=== PATIENT | female | born 1970 | race Caucasian/White ===

== ENCOUNTER 2019-09-02 10:33 | Outpatient (CLI) | payer OTHER, SELFPAY ==
[2019-09-02 11:35] LABS: Cholesterol 144 mg/dL (0-200); HDL Direct 28 mg/dL; Triglycerides 110 mg/dL (<150)
[2019-09-02 11:46] LABS: LDL Cholesterol Direct 93 mg/dL
== END 2019-09-02 10:34 | disposition home or self-care (01) ==
PROVIDERS: PCP Family Medicine; Visit Provider Nurse Practitioner Family
DX: E78.2 Mixed hyperlipidemia (principal)
CPT/HCPCS: 36415; 80061

== ENCOUNTER 2020-05-08 09:49 | Outpatient (CLI) | payer OTHER, SELFPAY ==
[2020-05-08 10:12] LABS: Basophils Absolute Auto 0.1 K/mm3 (0.0-0.1); Basophils Percent Auto 1.1 % (0.2-1.2); Eosinophils Absolute Auto 0.3 K/mm3 (0-0.3); Hematocrit 40.2 % (37.0-47.0); Hemoglobin 13.4 g/dL (12.0-15.0); Immature Granulocyte Absolute 0.02 K/mm3 (0.00-0.031); Immature Granulocyte Percent A 0.3 % (0-0.5); Lymphocytes Absolute Auto 1.49 K/mm3 (0.9-3.2); Lymphocytes Percent Auto 23.2 % (18.3-44.2); Mean Corpuscular HGB Conc 33.3 g/dl (32-36); Mean Corpuscular Hemoglobin 29.8 pg (26-34); Mean Corpuscular Volume 89.5 fl (80-100); Mean Platelet Volume 9.8 fl (7.4-10.4); Monocytes Absolute Auto 0.6 K/mm3 (0.1-0.6); Monocytes Percent Auto 8.6 % (2.6-8.5); Neutrophils Percent Auto 61.8 % (45.5-73.1); Platelet Count Result 286 k/mm3 (150-375); Red Blood Count 4.49 M/mm3 (4.2-5.4); Red Cell Distribution Width 13.3 % (11.5-14.5); White Blood Count 6.4 K/mm3 (4.5-10.0)
[2020-05-08 10:21] LABS: Alanine Aminotransferase 35 U/L (4-35); Alkaline Phosphatase 59 U/L (38-126); Anion Gap 4 mmol/L (8-16); Aspartate Amino Transferase 35 U/L (14-36); Bilirubin,Total 0.4 mg/dL (0.2-1.3); Blood Urea Nitrogen 11 mg/dL (7-17); Calcium 8.9 mg/dL (8.4-10.2); Carbon Dioxide 30 mmol/L (22-30); Chloride 104 mmol/L (98-107); Cholesterol 192 mg/dL (0-200); Estimated Glomerular Filt Rate > 60; Glucose 105 mg/dL (65-105); HDL Direct 42 mg/dL; Potassium 4.2 mmol/L (3.4-5.0); Sodium 138 mmol/L (137-145); Triglycerides 183 mg/dL (<150)
[2020-05-08 10:32] LABS: LDL Cholesterol Direct 106 mg/dL
[2020-05-08 10:57] LABS: Free T4 Free Thyroxine 0.71 ng/mL (0.78-2.19); Vitamin D 25 Hydroxy 20.5 ng/mL
== END 2020-05-08 09:50 | disposition home or self-care (01) ==
LOC: ANHLAB 09:52
PROVIDERS: PCP Family Medicine; Visit Provider Nurse Practitioner
DX: Z13.0 Encounter for screening for diseases of the blood and blood-forming organs and certain disorders involving the immune mechanism (principal); Z13.6 Encounter for screening for cardiovascular disorders; Z13.220 Encounter for screening for lipoid disorders; Z13.29 Encounter for screening for other suspected endocrine disorder; E55.9 Vitamin D deficiency, unspecified; I10 Essential (primary) hypertension; Z00.00 Encounter for general adult medical examination without abnormal findings
CPT/HCPCS: 36415; 80053; 80061; 82306; 84439; 84443; 84480; 85025

== ENCOUNTER 2020-12-18 09:20 | Outpatient (CLI) | payer OTHER, SELFPAY ==
[2020-12-18 09:56] LABS: Basophils Absolute Auto 0.1 K/mm3 (0.0-0.1); Basophils Percent Auto 0.8 % (0.2-1.2); Eosinophils Absolute Auto 0.3 K/mm3 (0-0.3); Eosinophils Percent Auto 3.8 % (0-4.4); Hematocrit 41.7 % (37.0-47.0); Hemoglobin 13.8 g/dL (12.0-15.0); Immature Granulocyte Absolute 0.02 K/mm3 (0.00-0.031); Immature Granulocyte Percent A 0.3 % (0-0.5); Lymphocytes Absolute Auto 1.37 K/mm3 (0.9-3.2); Lymphocytes Percent Auto 18.7 % (18.3-44.2); Mean Corpuscular HGB Conc 33.1 g/dl (32-36); Mean Corpuscular Hemoglobin 30.2 pg (26-34); Mean Corpuscular Volume 91.2 fl (80-100); Mean Platelet Volume 10.2 fl (7.4-10.4); Monocytes Absolute Auto 0.6 K/mm3 (0.1-0.6); Monocytes Percent Auto 8.5 % (2.6-8.5); Neutrophils Percent Auto 67.9 % (45.5-73.1); Platelet Count Result 298 k/mm3 (150-375); Red Blood Count 4.57 M/mm3 (4.2-5.4); Red Cell Distribution Width 13.5 % (11.5-14.5); White Blood Count 7.3 K/mm3 (4.5-10.0)
[2020-12-18 10:17] LABS: Alanine Aminotransferase 78 U/L (4-35); Albumin Level 4.2 g/dL (3.5-5.1); Alkaline Phosphatase 63 U/L (38-126); Anion Gap 5 mmol/L (8-16); Aspartate Amino Transferase 51 U/L (14-36); Bilirubin,Total 0.5 mg/dL (0.2-1.3); Blood Urea Nitrogen 13 mg/dL (7-17); Calcium 9.2 mg/dL (8.4-10.2); Carbon Dioxide 32 mmol/L (22-30); Chloride 101 mmol/L (98-107); Cholesterol 155 mg/dL (0-200); Estimated Glomerular Filt Rate > 60; Glucose 107 mg/dL (65-110); HDL Direct 32 mg/dL; Potassium 3.6 mmol/L (3.4-5.0); Sodium 138 mmol/L (137-145); Triglycerides 174 mg/dL (<150)
[2020-12-18 10:23] LABS: LDL Cholesterol Direct 84 mg/dL
[2020-12-18 10:33] LABS: MALB Creatinine Ratio 25.3 mg/g (0-30); Microalbumin Urine Random 62.2 mg/L (0-16.7)
[2020-12-18 10:44] LABS: Free T4 Free Thyroxine 0.93 ng/mL (0.78-2.19)
[2020-12-18 11:35] LABS: Total Triiodothyronine (T3) 1.44 NG/ML (0.97-1.69)
== END 2020-12-18 09:21 | disposition home or self-care (01) ==
LOC: ANHLAB 09:23
PROVIDERS: PCP Family Medicine; Visit Provider Nurse Practitioner Family
DX: E78.5 Hyperlipidemia, unspecified (principal); I10 Essential (primary) hypertension
CPT/HCPCS: 36415; 80053; 80061; 82043; 82306; 84439; 84443; 84480; 85025

== ENCOUNTER 2022-10-06 11:06 | Outpatient (CLI) | payer OTHER, SELFPAY ==
[2022-10-06 16:40] LABS: Basophils Absolute Auto 0.1 K/mm3 (0.0-0.1); Basophils Percent Auto 0.7 % (0.2-1.2); Eosinophils Absolute Auto 0.2 K/mm3 (0-0.3); Eosinophils Percent Auto 2.9 % (0-4.4); Hematocrit 40.9 % (37.0-47.0); Immature Granulocyte Absolute 0.05 K/mm3 (0.00-0.031); Immature Granulocyte Percent A 0.6 % (0-0.5); Lymphocytes Percent Auto 14.6 % (18.3-44.2); Mean Corpuscular HGB Conc 31.8 g/dl (32-36); Mean Corpuscular Hemoglobin 29.4 pg (26-34); Mean Corpuscular Volume 92.5 fl (80-100); Mean Platelet Volume 10.8 fl (7.4-10.4); Monocytes Absolute Auto 0.6 K/mm3 (0.1-0.6); Monocytes Percent Auto 7.1 % (2.6-8.5); Neutrophils Absolute Auto 6.1 K/mm3 (1.3-6.7); Neutrophils Percent Auto 74.1 % (45.5-73.1); Platelet Count Result 331 k/mm3 (150-375); Red Blood Count 4.42 M/mm3 (4.2-5.4); Red Cell Distribution Width 13.1 % (11.5-14.5); White Blood Count 8.2 K/mm3 (4.5-10.0)
[2022-10-06 17:01] LABS: Alanine Aminotransferase 21 U/L (6-35); Albumin Level 4.1 g/dL (3.5-5.1); Alkaline Phosphatase 75 U/L (38-126); Anion Gap 9 mmol/L (8-16); Aspartate Amino Transferase 74 U/L (14-36); Bilirubin,Total 0.6 mg/dL (0.2-1.3); Blood Urea Nitrogen 11 mg/dL (7-17); Calcium 8.7 mg/dL (8.4-10.2); Carbon Dioxide 28 mmol/L (22-30); Chloride 101 mmol/L (98-107); Cholesterol 176 mg/dL (0-200); Estimated Glomerular Filt Rate > 60; Glucose 90 mg/dL (65-110); HDL Direct 33 mg/dL; Potassium 3.8 mmol/L (3.4-5.0); Sodium 138 mmol/L (137-145); Triglycerides 217 mg/dL (<150)
[2022-10-06 17:12] LABS: LDL Cholesterol Direct 95 mg/dL
[2022-10-06 17:15] LABS: Free T4 Free Thyroxine 0.96 ng/mL (0.78-2.19)
[2022-10-06 17:28] LABS: Total Triiodothyronine (T3) 1.27 NG/ML (0.97-1.69)
== END 2022-10-06 11:07 | disposition home or self-care (01) ==
LOC: ANHWCLAB 11:12
PROVIDERS: PCP Family Medicine; Visit Provider Nurse Practitioner Adult Health
DX: I10 Essential (primary) hypertension (principal); F41.9 Anxiety disorder, unspecified; E78.5 Hyperlipidemia, unspecified; J44.9 Chronic obstructive pulmonary disease, unspecified; F31.9 Bipolar disorder, unspecified
CPT/HCPCS: 36415; 80053; 80061; 84439; 84443; 84480; 85025

== ENCOUNTER 2023-01-23 09:22 | Outpatient (CLI) | payer OTHER, SELFPAY ==
[2023-01-23 16:35] LABS: Basophils Absolute Auto 0.1 K/mm3 (0.0-0.1); Basophils Percent Auto 1.1 % (0.2-1.2); Eosinophils Absolute Auto 0.3 K/mm3 (0-0.3); Eosinophils Percent Auto 4.2 % (0-4.4); Hemoglobin 12.9 g/dL (12.0-15.0); Immature Granulocyte Absolute 0.02 K/mm3 (0.00-0.031); Immature Granulocyte Percent A 0.3 % (0-0.5); Lymphocytes Absolute Auto 1.25 K/mm3 (0.9-3.2); Lymphocytes Percent Auto 19.6 % (18.3-44.2); Mean Corpuscular HGB Conc 31.5 g/dl (32-36); Mean Corpuscular Volume 92.1 fl (80-100); Monocytes Absolute Auto 0.6 K/mm3 (0.1-0.6); Monocytes Percent Auto 9.7 % (2.6-8.5); Neutrophils Absolute Auto 4.1 K/mm3 (1.3-6.7); Neutrophils Percent Auto 65.1 % (45.5-73.1); Platelet Count Result 331 k/mm3 (150-375); Red Blood Count 4.45 M/mm3 (4.2-5.4); Red Cell Distribution Width 13.7 % (11.5-14.5); White Blood Count 6.4 K/mm3 (4.5-10.0)
[2023-01-23 17:11] LABS: Alanine Aminotransferase 16 U/L (6-35); Albumin Level 4.2 g/dL (3.5-5.1); Alkaline Phosphatase 68 U/L (38-126); Anion Gap 5 mmol/L (8-16); Aspartate Amino Transferase 57 U/L (14-36); Bilirubin,Total 0.8 mg/dL (0.2-1.3); Blood Urea Nitrogen 12 mg/dL (7-17); Calcium 8.9 mg/dL (8.4-10.2); Carbon Dioxide 27 mmol/L (22-30); Chloride 104 mmol/L (98-107); Cholesterol 176 mg/dL (0-200); Estimated Glomerular Filt Rate > 60; Glucose 95 mg/dL (65-110); HDL Direct 34 mg/dL; Potassium 3.6 mmol/L (3.4-5.0); Sodium 136 mmol/L (137-145); Triglycerides 107 mg/dL (<150)
[2023-01-23 17:22] LABS: LDL Cholesterol Direct 98 mg/dL
[2023-01-23 17:28] LABS: Free T4 Free Thyroxine 1.15 ng/mL (0.78-2.19)
[2023-01-23 17:41] LABS: Thyroid Stimulating Hormone 0.398 uIU/mL (0.465-4.680)
== END 2023-01-23 09:23 | disposition home or self-care (01) ==
LOC: ANHWCLAB 09:23
PROVIDERS: PCP Family Medicine; Visit Provider Nurse Practitioner Adult Health
DX: I10 Essential (primary) hypertension (principal); E78.5 Hyperlipidemia, unspecified; J44.9 Chronic obstructive pulmonary disease, unspecified; R60.9 Edema, unspecified; G62.9 Polyneuropathy, unspecified
CPT/HCPCS: 36415; 80053; 80061; 84439; 84443; 85025

== ENCOUNTER 2023-07-31 10:02 | Outpatient (CLI) | payer OTHER, SELFPAY ==
[2023-07-31 10:46] LABS: Alanine Aminotransferase 15 U/L (6-35); Albumin Level 4.1 g/dL (3.5-5.1); Alkaline Phosphatase 58 U/L (38-126); Anion Gap 8 mmol/L (4-12); Aspartate Amino Transferase 23 U/L (14-36); Bilirubin,Total 0.5 mg/dL (0.2-1.3); Blood Urea Nitrogen 12 mg/dL (7-17); Carbon Dioxide 30 mmol/L (22-30); Chloride 101 mmol/L (98-107); Estimated Glomerular Filt Rate > 60; Glucose 139 mg/dL (65-110); Potassium 2.8 mmol/L (3.4-5.0); Sodium 139 mmol/L (137-145)
== END 2023-07-31 10:03 | disposition home or self-care (01) ==
LOC: ANHLAB 10:08
PROVIDERS: PCP Family Medicine; Visit Provider Family Medicine
DX: R60.0 Localized edema (principal); M47.816 Spondylosis without myelopathy or radiculopathy, lumbar region
CPT/HCPCS: 36415; 80053

== ENCOUNTER 2023-08-02 10:49 | Outpatient (CLI) | payer OTHER, SELFPAY ==
[2023-08-02 11:22] LABS: Alanine Aminotransferase 16 U/L (6-35); Alkaline Phosphatase 56 U/L (38-126); Anion Gap 6 mmol/L (4-12); Aspartate Amino Transferase 22 U/L (14-36); Bilirubin,Total 0.4 mg/dL (0.2-1.3); Blood Urea Nitrogen 14 mg/dL (7-17); Calcium 8.9 mg/dL (8.4-10.2); Carbon Dioxide 30 mmol/L (22-30); Chloride 104 mmol/L (98-107); Estimated Glomerular Filt Rate > 60; Glucose 106 mg/dL (65-110); Potassium 3.5 mmol/L (3.4-5.0); Sodium 140 mmol/L (137-145)
== END 2023-08-02 10:50 | disposition home or self-care (01) ==
LOC: ANHLAB 10:52
PROVIDERS: PCP Family Medicine; Visit Provider Registered Nurse
DX: I10 Essential (primary) hypertension (principal); E87.5 Hyperkalemia
CPT/HCPCS: 36415; 80053

== ENCOUNTER 2023-09-18 11:14 | Outpatient (CLI) | payer MEDICAID, SELFPAY ==
[2023-09-18 12:36] LABS: Anion Gap 8 mmol/L (4-12); Blood Urea Nitrogen 12 mg/dL (7-17); Calcium 8.6 mg/dL (8.4-10.2); Carbon Dioxide 28 mmol/L (22-30); Chloride 103 mmol/L (98-107); Estimated Glomerular Filt Rate > 60; Glucose 103 mg/dL (65-110); Potassium 3.2 mmol/L (3.4-5.0); Sodium 139 mmol/L (137-145)
== END 2023-09-18 11:15 | disposition home or self-care (01) ==
PROVIDERS: PCP Family Medicine; Visit Provider Registered Nurse
DX: R60.9 Edema, unspecified (principal); I10 Essential (primary) hypertension
CPT/HCPCS: 36415; 80048

== ENCOUNTER 2023-09-25 13:19 | Outpatient (CLI) | payer MEDICAID, SELFPAY ==
[2023-09-25 13:49] LABS: Anion Gap 8 mmol/L (4-12); Blood Urea Nitrogen 12 mg/dL (7-17); Calcium 8.9 mg/dL (8.4-10.2); Carbon Dioxide 30 mmol/L (22-30); Chloride 101 mmol/L (98-107); Estimated Glomerular Filt Rate > 60; Glucose 105 mg/dL (65-110); Potassium 3.4 mmol/L (3.4-5.0); Sodium 139 mmol/L (137-145)
== END 2023-09-25 13:20 | disposition home or self-care (01) ==
PROVIDERS: PCP Family Medicine; Visit Provider Registered Nurse
DX: I10 Essential (primary) hypertension (principal)
CPT/HCPCS: 36415; 80048

== ENCOUNTER 2023-11-14 13:19 | Emergency (ER) | payer OTHER, SELFPAY ==
[2023-11-14 13:31] VITALS: BP 115/66; PULSE 67; RESP 20; TEMP 36.4; O2SAT 99
--- NOTE | 2023-11-14 14:26 | ED.URI ---
HPI - URI/Sore Throat General Chief Complaint: Upper Respiratory Infection Stated Complaint: sore throat,cough,chest bothersome Time Seen by Provider: 11/14/23 14:26 Source: patient, RN notes reviewed and old records reviewed Mode of arrival: ambulatory Limitations: no limitations History of Present Illness HPI Narrative: Patient present complaining of sore throat and cough that has been present for approximately 3 days. 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 She is concerned today that this might be what is wrong with her. She reports that she has been intermittently taking some Tylenol, minimal relief. She denies any fever, chills, sweats. She reports worse symptom is the sore throat Related Data Home Medications Medication Instructions Recorded Confirmed albuterol sulfate 90 mcg/actuation 1 puff inhalation Q4H PRN SOB 10/10/23 11/14/23 aerosol inhaler amlodipine 10 mg tablet 10 mg PO DAILY 10/10/23 11/14/23 atorvastatin 80 mg tablet 80 mg PO DAILY 10/10/23 11/14/23 cetirizine 10 mg tablet 10 mg PO DAILY 10/10/23 11/14/23 fluoxetine 10 mg capsule 10 mg PO DAILY 10/10/23 11/14/23 fluoxetine 40 mg capsule 40 mg PO DAILY 10/10/23 11/14/23 furosemide 40 mg tablet 40 mg PO QAM 10/10/23 11/14/23 gabapentin 300 mg tablet,extended 300 mg PO QPM 10/10/23 11/14/23 release 24 hr potassium chloride 20 mEq 20 meq PO DAILY 10/10/23 11/14/23 tablet,extended release quetiapine 50 mg tablet 50 mg PO BID 10/10/23 11/14/23 umeclidinium 62.5 mcg/actuation 1 inh inhalation DAILY 10/10/23 11/14/23 blister powder for inhalation (Incruse Ellipta) Allergies Allergy/AdvReac Type Severity Reaction Status Date / Time No Known Allergies Allergy Verified 11/14/23 13:27 Review of Systems Review of Systems: All systems reviewed & are unremarkable except as noted in HPI and below Constitutional: Constitutional: Reports no additional constitutional complaints ENT: Reports system reviewed and no additional complaints, except as documented, Reports nasal discharge and Reports sore throat Cardiovascular: Cardiovascular: Reports no additional cardiovascular complaints Respiratory: Respiratory: Reports no additional respiratory complaints and Reports cough Gastrointestinal: Gastrointestinal: Reports no additional gastrointestinal complaints [facility] Family History Family History Mother Lung cancer Social History Social History Smoking packs per day: 1 Smoking cigarettes per day: 20.0 Smoking status: Current every day smoker Tobacco type: cigarettes Alcohol intake: never Substance use: never Substance use type: does not use Do You Feel Safe in your Home?: Yes Lack of Transportation: No Lack of Food: Sometimes True Current Housing: I Have Housing Concerned About Future Housing: No Difficulty Paying Gas/Electric Bills: No Difficulty Paying for Meds: No Currently Unemployed: No Education: High School Diploma/GED Difficulty w/ Childcare or Family Care: No Comments At the time of my signature, I reviewed and agree with the nursing past medical, surgical, social, and family history. There is no relevant family history pertinent to the patient complaint. Exam Const: General: cooperative, no acute distress, alert and awake Orientation/consciousness: oriented to person, oriented to place and oriented to time HENMT: Head: normal to inspection Ears: TM's normal bilaterally Mouth: Yes moist mucous membranes Throat: posterior oropharynx normal Resp: Effort & Inspection: normal respiratory effort and able to speak in complete sentences Auscultation: clear to auscultation bilaterally, no crackles, no rales, no rhonchi and no wheezes Cardio: Palpation: normal PMI Rate: regular rate Rhythm: regular rhythm Heart sounds: S1 normal heart sound
[2023-11-14 14:30] LABS: EDCOVIDSCREEN Negative (Negative); EDINFLUASCREEN Negative (Negative); EDINFLUBSCREEN Negative (Negative)
== END 2023-11-14 14:40 | disposition home or self-care (01) ==
PROVIDERS: Emergency Provider Nurse Practitioner Family; PCP Family Medicine
DX: B34.9 Viral infection, unspecified (principal); Z20.822 Contact with and (suspected) exposure to COVID-19; F17.210 Nicotine dependence, cigarettes, uncomplicated
CPT/HCPCS: 87426; 87804; 99213; G0463

== ENCOUNTER 2024-03-01 09:15 | Outpatient (CLI) | payer OTHER, SELFPAY ==
--- NOTE | 2024-03-01 09:19 | ECHO_ITS ---
Patient Info Name: Iris Orosco Age: 53 years : 1970 Gender: Female Ht: 65 in Wt: 250 lbs BSA: 2.34 m2 HR: 70 bpm BP: 137 / 82 mmHg Technical Quality: Good Exam Date: 03/01/2024 9:30 AM Exam Location: Echo Lab Patient Status: Outpatient Admit Date: 03/01/2024 Staff Ordering Physician: Rafael Anglin DO Student Recruiter: Vanessa Burnett RDCS Attending Provider: Rafael Anglin DO Referring Physician: Derrek WYMAN; Exam Type: CA echo doppler color flow Study Info Indications R60.0 - Localized edema Complete two-dimensional, color flow and Doppler transthoracic echocardiogram is performed. Summary 1. Complete two-dimensional, color flow and Doppler transthoracic echocardiogram is performed. 2. Left ventricular chamber dimension is normal. 3. Left ventricular systolic function is normal, estimated at 60-65%. 4. The left ventricular diastolic function is grade I diastolic dysfunction. 5. E/e' 10 is mildly elevated. 6. There is mild tricuspid valve regurgitation. 7. No pulmonary hypertension, estimated pulmonary arterial systolic pressure is 26 mmHg. Left Ventricle E/e' 10 is mildly elevated. Left ventricular chamber dimension is normal. Left ventricular systolic function is normal, estimated at 60-65%. The left ventricular diastolic function is grade I diastolic dysfunction. Right Ventricle Right ventricular systolic function is normal and with normal TAPSE 2.6 cm. Right ventricular chamber dimension is normal. Left Atria Left atrial chamber dimension is normal. Right Atria Right atrial chamber dimension is normal. Aortic Valve The aortic valve is trileaflet. There is no aortic valve stenosis. There is no aortic valve regurgitation. Pulmonic Valve There is no pulmonic regurgitation. Mitral Valve There is no mitral valve stenosis. There is no mitral valve regurgitation. Tricuspid Valve There is mild tricuspid valve regurgitation. No pulmonary hypertension, estimated pulmonary arterial systolic pressure is 26 mmHg. Pericardium/Pleural There is no pericardial effusion. Inferior Vena Cava Normal inferior vena cava with >50% collapse upon inspiration consistent with normal right atrial pressure, 5 mmHg. Aorta The aortic root size at the sinus of Valsalva is normal. Left Ventricular Outflow Tract Name Value Normal LVOT 2D LVOT Diameter 2.0 cm LVOT Doppler LVOT Peak Gradient 5 mmHg LVOT Mean Gradient 2 mmHg LVOT VTI 26 cm LVOT VTI/AV VTI Ratio 0.7 LVOT Stroke Volume 84 ml LVOT CO 5.9 l/min LVOT CI 2.5 l/min/m2 Pulmonic Valve Name Value Normal RVOT Doppler RVOT Peak Gradient 2 mmHg PV Doppler PV Peak Gradient 8 mmHg Mitral Valve Name Value Normal MV Doppler MV Peak Gradient 9 mmHg MV Mean Gradient 4 mmHg MV Decel O'Brien 545 cm/s2 MV PHT 58 ms MV Area (PHT) 3.8 cm2 4.0-5.0 MV Area (Cont Eq VTI) 2.1 cm2 MV Diastolic Function MV E Peak Velocity 109 cm/s MV A Peak Velocity 119 cm/s MV E/A 0.9 MV Decel Time 199 ms MV Annular TDI MV E/e' (Septal) 11.3 <=8.0 MV E/e' (Lateral) 9.3 <=8.0 MV E/e' (Average) 10.3 Tricuspid Valve Name Value Normal TV Regurgitation Doppler TR Peak Velocity 231 cm/s TR Peak Gradient 19 mmHg Estimated PAP/RSVP RA Pressure 5 mmHg <=5 PA Systolic Pressure 26 mmHg <36 RV Systolic Pressure 26 mmHg <36 Aorta Name Value Normal Ascending Aorta Ao Root Diameter (MM) 2.9 cm Ao Root Diam Index (MM) 1.2 cm/m2 Aortic Valve Name Value Normal AV Doppler AV Peak Velocity 169 cm/s AV Peak Gradient 11 mmHg AV Mean Gradient 6 mmHg AV VTI 39 cm AV Area (Cont Eq VTI) 2.2 cm2 >=3.0 AV Area (Cont Eq Yusuf) 2.1 cm2 AV Regurgitation 2D LVOT Area 3.3 cm2 Ventricles Name Value Normal LV Dimensions 2D/MM IVS Diastolic Thickness (2D) 0.9 cm 0.6-1.0 LVID Diastole (2D) 4.5 cm 3.8-5.2 LVIW Diastolic Thickness (2D) 0.9 cm 0.6-0.9 LVID Systole (2D) 2.8 cm 2.2-3.5 LVOT Diameter 2.0 cm LV Mass (2D Cubed) 140.82 g 67.00-162.00 LV Mass Index (2D Cubed) 60 g/m2 43-95 Relative Wall Thickness (2D) 0.40 LV Fractional Shortening/Ejection Fraction 2D/MM LV Fractional Shortening (2D) 38 % 27-45 LV EF (2D Teichjessica) 68 % 54-74 LV Diastolic Volume (4C MOD) 98 ml LV EF (4C MOD) 76 % LV Diastolic Volume (2C MOD) 53 ml LV EF (2C MOD) 60 % LV Diastolic Volume (BP MOD) 73 ml 46-106 LV Diastolic Volume Index (BP MOD) 31 ml/m2 29-61 LV Systolic Volume (BP MOD) 22 ml 14-42 LV Systolic Volume Index (BP MOD) 10 ml/m2 8-24 LV EF (BP MOD) 70 % 54-74 LV Diastolic Length (4C) 8.2 cm LV Systolic Length (4C) 5.6 cm LV Stroke Volume (4C MOD) 75 ml Atria Name Value Normal LA Dimensions LA Dimension (MM) 3.8 cm 2.7-3.8 LA Volume (4C A-L) 57 ml LA Volume (BP A-L) 58 ml RA Dimensions RA Area (4C) 20.3 cm2 <=18.0 Report Signatures
== END 2024-03-01 09:16 | disposition home or self-care (01) ==
PROVIDERS: PCP Family Medicine; Visit Provider Internal Medicine Cardiovascular Disease
DX: R60.0 Localized edema (principal); I07.1 Rheumatic tricuspid insufficiency
CPT/HCPCS: 93306

== ENCOUNTER 2024-06-11 08:40 | Outpatient (CLI) | payer OTHER, SELFPAY ==
[2024-06-11 09:04] LABS: Basophils Absolute Auto 0.1 K/mm3 (0.0-0.1); Basophils Percent Auto 0.9 % (0.2-1.2); Eosinophils Absolute Auto 0.2 K/mm3 (0-0.3); Eosinophils Percent Auto 3.6 % (0-4.4); Hematocrit 40.3 % (37.0-47.0); Hemoglobin 13.1 g/dL (12.0-15.0); Immature Granulocyte Absolute 0.02 K/mm3 (0.00-0.031); Immature Granulocyte Percent A 0.3 % (0-0.5); Lymphocytes Absolute Auto 1.22 K/mm3 (0.9-3.2); Lymphocytes Percent Auto 19.1 % (18.3-44.2); Mean Corpuscular HGB Conc 32.5 g/dl (32-36); Mean Corpuscular Hemoglobin 28.9 pg (26-34); Monocytes Absolute Auto 0.6 K/mm3 (0.1-0.6); Monocytes Percent Auto 9.1 % (2.6-8.5); Neutrophils Absolute Auto 4.3 K/mm3 (1.3-6.7); Platelet Count Result 315 k/mm3 (150-375); Red Blood Count 4.53 M/mm3 (4.2-5.4); Red Cell Distribution Width 13.8 % (11.5-14.5); White Blood Count 6.4 K/mm3 (4.5-10.0)
[2024-06-11 09:12] LABS: Alanine Aminotransferase 18 U/L (6-35); Albumin Level 4.1 g/dL (3.5-5.1); Alkaline Phosphatase 79 U/L (38-126); Anion Gap 6 mmol/L (4-12); Aspartate Amino Transferase 21 U/L (14-36); Bilirubin,Total 0.7 mg/dL (0.2-1.3); Blood Urea Nitrogen 10 mg/dL (7-17); Calcium 8.8 mg/dL (8.4-10.2); Carbon Dioxide 29 mmol/L (22-30); Chloride 105 mmol/L (98-107); Cholesterol 150 mg/dL (0-200); Estimated Glomerular Filt Rate > 60; Glucose 103 mg/dL (65-110); HDL Direct 33 mg/dL; Potassium 3.4 mmol/L (3.4-5.0); Sodium 140 mmol/L (137-145); Triglycerides 123 mg/dL (<150)
[2024-06-11 09:23] LABS: LDL Cholesterol Direct 75 mg/dL
[2024-06-11 10:33] LABS: Hepatitis C Virus Antibody Negative (Negative)
== END 2024-06-11 08:41 | disposition home or self-care (01) ==
LOC: ANHLAB 08:43
PROVIDERS: PCP Family Medicine; Visit Provider Registered Nurse
DX: E78.5 Hyperlipidemia, unspecified (principal); I10 Essential (primary) hypertension; J44.9 Chronic obstructive pulmonary disease, unspecified; Z11.59 Encounter for screening for other viral diseases
CPT/HCPCS: 36415; 80053; 80061; 85025; 86803

== ENCOUNTER 2024-10-29 15:13 | Emergency (ER) | payer OTHER, SELFPAY ==
[2024-10-29 15:22] VITALS: BP 121/69; PULSE 79; RESP 16; TEMP 36.6; O2SAT 99
--- NOTE | 2024-10-29 15:23 | ED_ITS ---
HPI - General Adult General Chief complaint: Neck Pain/Injury Stated complaint: neck pain/both legs swollen Time Seen by Provider: 10/29/24 15:29 Source: patient, RN notes reviewed and old records reviewed Mode of arrival: ambulatory Limitations: no limitations History of Present Illness HPI narrative: 54-year-old female presents to the [facility] with multiple complaints. States that she slept wrong and woke up with neck pain. Denies any trauma. No numbness or tingling in extremities. No midline tenderness. Pain is mostly to the right lateral neck. Patient denies any chest pain or shortness of breath Also complaining of bilateral leg edema. Has a history of bilateral leg swelling. Is taking Lasix daily. Had been instructed to wear compression stockings which she does not. Now having pink areas to the medial aspect of bilateral legs. No swelling. No pain, no itching. Related Data Home Medications ?Medication ?Instructions ?Recorded ?Confirmed ?Last Taken ?Type albuterol sulfate 90 mcg/actuation 1 puff inhalation Q 4H PRN SOB 10/10/23 04/12/24 Unknown History aerosol inhaler amlodipine 10 mg tablet 10 mg PO DAILY 10/10/2303/17 Unknown History atorvastatin 80 mg tablet 80 mg PO DAILY 10/10/2303/17 Unknown History fluoxetine 10 mg capsule 10 mg PO DAILY 10/10/2303/17 Unknown History fluoxetine 40 mg capsule 40 mg PO DAILY 10/10/2303/17 Unknown History furosemide 40 mg tablet 40 mg PO QAM 10/10/23 Unknown History gabapentin 300 mg tablet,extended 300 mg PO QPM 04/12/24 Unknown History release 24 hr potassium chloride 20 mEq 20 meq PO DAILY 10/10/23 Unknown History tablet,extended release quetiapine 50 mg tablet 50 mg PO BID 10/10/23 Unknown History umeclidinium 62.5 mcg/actuation 1 inh inhalation DAILY 10/10/23 04/12/24 Unknown History blister powder for inhalation (Incruse Ellipta) Allergies Allergy/AdvReac Type Severity Reaction Status Date / Time No Known Allergies Allergy Verified 10/29/24 15:14 Review of Systems Review of Systems: All systems reviewed & are unremarkable except as noted in HPI and below Constitutional: Constitutional: Reports no additional constitutional complaints ENT: Reports system reviewed and no additional complaints, except as documented Cardiovascular: Cardiovascular: Reports as per HPI, Denies chest pain, Reports leg edema and Denies dyspnea Respiratory: Respiratory: Reports no additional respiratory complaints, Denies chest congestion, Denies cough and Denies dyspnea Musculoskeletal: Musculoskeletal: Reports as per HPI Integumentary/Breasts: Skin/Breast: Reports system reviewed and no additional complaints, except as [facility]u [facility] Family History Family History Mother Lung cancer Social History Social History Smoking packs per day: 1 Smoking cigarettes per day: 20.0 Smoking status: Current every day smoker Tobacco type: cigarettes Alcohol intake: never Substance use: never Substance use type: does not use Do You Feel Safe in your Home?: Yes Lack of Transportation: No Lack of Food: Sometimes True Current Housing: I Have Housing Concerned About Future Housing: No Difficulty Paying Gas/Electric Bills: No Difficulty Paying for Meds: No Currently Unemployed: No Education: High School Diploma/GED Difficulty w/ Childcare or Family Care: No Comments At the time of my signature, I reviewed and agree with the nursing past medical, surgical, social, and family history. There is no relevant family history pertinent to the patient complaint. Exam Const: General: cooperative, healthy appearing, comfortable, no acute distress, well developed, alert and well nourished Nutritional Appearance: well nourished and obese Orientation/consciousness: patient oriented x3 Limitations: no limitations HENMT: Head: normal to inspection Eyes: General: appearance normal, both eyes and all related structures Alignment and Position: alignment normal Neck: Neck: normal visual inspection, full ROM, no lymphadenopathy, no meningeal signs, no midline deformity, nontender and no torticollis Chest: Chest palpation & inspection: normal inspection of the chest Resp: Effort & Inspection: normal respiratory effort and able to speak in complete sentences Auscultation: clear to auscultation bilaterally, no crackles, no rales, no rhonchi and no wheezes Cardio: Rate: regular rate Skin: General skin exam: normal color and no rashes or lesions noted Neuro: General: patient oriented x3, gait normal, moves all extremities and no meningeal signs Cognition (Neuro): normal cognition Speech: normal speech Gait exam (Neuro): Normal gait present Extrem: General: normal to inspection, full ROM, capillary refill normal and normal gait Other: Bilateral lower leg +2 edema. Areas are pink on the medial aspect without raised, red, warm, blisters Psych: Appearance: grossly normal and well kempt Mental Status: mental status grossly normal Speech and movement: Normal speech and movement present and Clear speech present Affect: normal affect Attitude: cooperative Course Course Level of Care: Express Care Visit Vital Signs Vital signs: Vital Signs Temperature 97.8 F 10/29/24 15:22 Pulse Rate 79 10/29/24 15:22 Respiratory Rate 16 10/29/24 15:22 Blood Pressure 121/69 10/29/24 15:22 Pulse Oximetry 99 10/29/24 15:22 Oxygen Delivery Room Air 10/29/24 15:22 Temperature 97.8 F 10/29/24 15:22 Pulse Rate 79 10/29/24 15:22 Respiratory Rate 16 10/29/24 15:22 Blood Pressure 121/69 10/29/24 15:22 Pulse Oximetry 99 10/29/24 15:22 Oxygen Delivery Room Air 10/29/24 15:22 Reviewed Medical Decision Making MDM Narrative Medical decision making narrative: Patient sitting in exam room. Patient will not get off cell phone. Presents with low right lateral neck pain with no injury. No midline tenderness. No neurologic deficits. Also has chronic edema which is being addressed by her primary care provider. Discussed wearing compression hose, will prescribe a muscle relaxer and stressed the importance of following up Discharge instructions reviewed with patient, as well as provided in writing per nursing staff. The instructions also include specific and strict return/GO TO THE ER as well as f/u information. All questions have been answered, and the patient deny any further questions with discharge and discharge plan. Some parts of this dictation were generated by voice recognition software and may contain typographical and/or grammatical inaccuracies. Differential Diagnosis Differential Diagnosis: Chronic edema, neck strain sprain Medical Records Medical records reviewed: Yes I reviewed the external patient's medical records. Vital Signs Vital Signs: Vital Signs Temperature 97.8 F 10/29/24 15:22 Pulse Rate 79 10/29/24 15:22 Respiratory Rate 16 09/16/25 15:22 Blood Pressure 121/69 09/16/25 15:22 Pulse Oximetry 99 10/29/24 15:22 Oxygen Delivery Room Air 10/29/24 15:22 Temperature 97.8 F 10/29/24 15:22 Pulse Rate 79 10/29/24 15:22 Respiratory Rate 16 10/29/24 15:22 Blood Pressure 121/69 10/29/24 15:22 Pulse Oximetry 99 10/29/24 15:22 Oxygen Delivery Room Air 10/29/24 15:22 Reviewed Lab Data Lab results reviewed: Yes I reviewed the patient's lab results. Labs: Reviewed Critical Care Time Critical Care Time Critical Care Time: No Discharge Plan Discharge Clinical Impression: Bilateral lower extremity edema Strain of neck muscle Qualifiers: Encounter type: initial encounter Qualified Code(s): S16.1XXA - Strain of muscle, fascia and tendon at neck level, initial encounter Patient Disposition: Home Condition: Stable Instructions: Edema (ED), Acute Neck Pain (ED) Additional Instructions: Take Motrin alternating with Tylenol as needed for pain in your neck. Take Baclofen (muscle relaxer) as directed. Do not drink, drive, operate iCAD, or do anything dangerous while taking this medication Exercise:Combine aerobic exercise, like walking or swimming, with specific exercises to keep the muscles in your back and abdomen strong and flexible. Proper Lifting:Be sure to lift heavy items with your legs, not your back. Do not bend over to pick something up. Keep your back straight and bend at your knees. Weight:Maintain a healthy weight. Being overweight puts added stress on your lower back. Avoid Smoking:Both the smoke and the nicotine cause your spine to age faster than normal. Proper Posture:Good posture is important for avoiding future problems. A therapist can teach you how to safely stand, sit, and lift. Use warm moist heat to help with pain. Using topical such as Biofreeze, [place] or Aspercreme can also help Follow up with Primary provider in 2-3 days, This may become a chronic condition and they will be the one to help manage your pain and order additional testing. Go to the nearest ER if you develop problems with bladder/bowel function, weakness or loss of feeling in one or both of your legs. For year lower leg edema follow-up with your primary care provider and or switchboard receptionist Continue to take your Lasix/furosemide as prescribed Foot the salt shaker away. Do not add salt ear food Wear compression stockings For worsening symptoms go to the ER Patient Language: Afghan Prescriptions: New baclofen 10 mg tablet See Rx Instructions .Route .COMPLEX PRN (Reason: muscle pain) Qty: 7 0RF Rx Instructions: 0.5-1 tab bid prn pain No Action albuterol sulfate 90 mcg/actuation HFA aerosol inhaler 1 puff inhalation Q4H PRN (Reason: SOB) atorvastatin 80 mg tablet 80 mg PO DAILY Incruse Ellipta 62.5 mcg/actuation blister with device 1 inh inhalation DAILY gabapentin 300 mg tablet extended release 24 hr 300 mg PO QPM fluoxetine 10 mg capsule 10 mg PO DAILY fluoxetine 40 mg capsule 40 mg PO DAILY quetiapine 50 mg tablet 50 mg PO BID amlodipine 10 mg tablet 10 mg PO DAILY potassium chloride 20 mEq tablet extended release 20 meq PO DAILY furosemide 40 mg tablet 40 mg PO QAM Follow-up/Referrals: Marquis Oh MD [Primary Care Provider, Family Practice] - 3 Days Stand Alone Forms: Work/School Release IP Time of Disposition: 15:46
== END 2024-10-29 15:50 | disposition home or self-care (01) ==
PROVIDERS: Emergency Provider Nurse Practitioner; PCP Family Medicine
DX: R60.0 Localized edema (principal); S16.1XXA Strain of muscle, fascia and tendon at neck level, initial encounter; X58.XXXA Exposure to other specified factors, initial encounter; F17.210 Nicotine dependence, cigarettes, uncomplicated
CPT/HCPCS: 99213; G0463